=== PATIENT | female | born 1990 | race Caucasian/White ===

== ENCOUNTER 2020-11-22 09:51 | Outpatient (REF) | payer BC, SELFPAY ==
[2020-11-22 11:44] LABS: Hematocrit 36.1 % (37-47); Hemoglobin 12.2 g/dl (12.0-16.0); Mean Corpuscular HGB Conc 33.8 g/dl (31.0-35.0); Mean Corpuscular Hemoglobin 30.3 pg (27.0-33.0); Mean Corpuscular Volume 89.8 fL (80-98); Platelet Count 272 X10*3/uL (160-400); Red Blood Count 4.02 X10*6/uL (4.20-5.50); Red Cell Distribution Width 11.8 % (11.0-16.0); White Blood Count 4.4 X10*3/uL (4.8-10.8)
[2020-11-22 12:40] LABS: Alanine Aminotransferase 12 U/L (0-31); Albumin Level 4.8 g/dL (3.5-5.0); Alkaline Phosphatase 41 U/L (39-117); Anion Gap 13 (12-20); Aspartate Amino Transferase 15 U/L (5-31); Blood Urea Nitrogen 12 mg/dL (9-16); Calcium 9.2 mg/dL (8.4-10.2); Carbon Dioxide 24 mmol/L (22-29); Chloride 106 mmol/L (96-108); Cholesterol 183 mg/dL; Estimated Glomerular Filt Rate > 60; Glucose Fasting 101 mg/dL (60-99); HDL Cholesterol 90 mg/dL; LDL Cholesterol Calculated 80 mg/dl; Potassium 3.8 mmol/L (3.3-5.1); Sodium 139 mmol/L (135-145); Total Protein 7.4 g/dL (6.5-8.0); Triglycerides 69 mg/dL
== END 2020-11-22 09:52 | disposition home or self-care (01) ==
LOC: HO.HMGCLDS 09:51
PROVIDERS: PCP Internal Medicine; Visit Provider Internal Medicine
DX: Z00.00 Encounter for general adult medical examination without abnormal findings (principal)
CPT/HCPCS: 36415; 80053; 80061; 85027

== ENCOUNTER 2025-03-24 11:28 | Outpatient (AMB) | payer OTHER, SELFPAY ==
--- NOTE | 2025-03-24 11:32 | A.OFFPC_ITS ---
Vital Signs 03/24/25 11:37 Height 5 ft 3 in Weight 122 lb BMI 21.6 BP 124/76 Blood Pressure Location Rt brachial Position Sitting Respiration 14 Pulse 117 H Pulse Source Pulse Oximeter Temp 98.6 F Temp Source Oral Pulse Oximetry (%) 97 Oxygen Delivery Method Room Air Intake Visit Reasons: CPE? 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 HPI Details Pt is a 34 y/o female who presents today to [facility] care. She is transferring internally. She has a list of concerns. Derm: she has a hx of tinea versicolor. She has not tried anything for this. Reports this flat, hyperpigmented rash on her neck, upper chest and arms. Neuro: she states for the last 14 months she has been feeling dizziness/spinning sensation. She states anytime she moves her head quickly she will get dizz y/spinning. She states that about a week ago she developed temporary vision loss. She states she initially it started with a bright/blinding light and then noted squiggles in her vision and then she felt like she lost her peripheral vision. She states she called her mother who gets ocular migraines and told her try ibuprofen. She took ibuprofen and in about 45 minutes everything resolved. She did not see eye services or ED following that. Her last eye exam was 2021. She does get headaches but no change in her headaches. No numbness, tingling or weakness. She does get crackling in her ears. MSK: she notices her right knee has been popping and painful for the last 3-5 months. CV: BP today in office is 124/76. Her pulse is elevated at 117. States that she gets medical anxiety. As the visit went on her heart rate did normalize. She does not normally have palpitations, racing heartbeat etc.. No chest pain or shortness on breath. 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 1. Little interest or pleasure in doing things: not at all 2. Feeling down, depressed, or hopeless: not at all 3. Trouble falling or staying asleep, or sleeping too much: not at all 4. Feeling tired or having little energy: several days 5. Poor appetite or overeating: not at all 6. Feeling bad about yourself - or that you are a failure or have let yourself or your family down: not at all 7. Trouble concentrating on things, such as reading the newspaper or watching television: not at all 8. Moving or speaking so slowly that other people could have noticed. Or the opposite - being so fidgety or restless that you have been moving around a lot more than usual: not at all 9. Thoughts that you would be better off or of hurting yourself in some way: not at all Total score: 1 Depression Screening Interpretation: Negative Depression Screening Done: Yes 06397 - PHQ-9 Billing: Yes Source: Developed by Drs. Kaiser Luna, Maria Antonia Eduardo, Vinicius Ortiz and colleagues, with an educational roberto carlos from [employer]. Thrive Questionnaire Date Thrive assessed: 03/24/25 I am a: Patient What is your living situation today?: I have a steady place to live Within the past 12 months, did the food you bought not last and you didn't have the money to get more?: Never true Within the past 12 months, did you worry whether your food would run out before you got money to buy more?: Never true Do you have trouble paying for medicines?: No Do you have trouble getting transportation to medical appointments?: No Do you have trouble paying your heating and electricity bill?: No Do you have trouble taking care of your child, family member or friend?: No Do you have trouble with day-to-day activities such as bathing, preparing meals, shopping, managing finances, etc.?: No Are you currently unemployed and looking for a job?: No Are you interested in more education?: No Please select the resources that you would like help with: None Currently or been in a relationship where the following occur: No concerns reported THRIVE Score: 0 AUDIT C Alcohol Use Questionnaire (AUDIT-C) 1. How often do you have a drink containing alcohol?: Monthly or less 2. How many drinks containing alcohol do you have on a typical day when you are drinking?: 1 or 2 3. How often do you have six or more drinks on one occasion?: Never Total Score: 1 Score Reviewed/Action Taken: Yes MACKENZIE-7 AMB Questionnaire MACKENZIE-7 Date MACKENZIE - 7 assessed: 03/24/25 Feeling nervous, anxious, or on edge: 3 = Nearly every day Not being able to stop or control worryin = More than half the days Worrying too much about different things: 2 = More than half the days Trouble relaxin = More than half the days Being so restless that it is hard to sit still: 0 = Not at all Becoming easily annoyed or irritable: 2 = More than half the days Feeling afraid as if something awful might happen: 0 = Not at all Total MACKENZIE-7 score (0-4 normal; 5-9 mild; 10-14 moderate; 15-21 severe): 11 Source: Developed by Drs. Kaiser Luna, Maria Antonia Eduardo, Vinicius Ortiz and colleagues, with an educational roberto carlos from [employer]. MACKENZIE-7 Assessment Billing MACKENZIE-7 Assessment Tool: MACKENZIE-7 Assessment 63602 Physical exam (Primary Care) Vital Signs: Last Vital Signs Temp 98.6 F 03/24/25 11:37 Pulse 117 H 03/24/25 11:37 Resp 14 03/24/25 11:37 BP 124/76 03/24/25 11:37 Pulse Ox 97 03/24/25 11:37 Oxygen Delivery Method Room Air 03/24/25 11:37 BMI result Body Mass Index 21.6 Tobacco/Smoking Status: Tobacco use Status Tobacco use date assessed 03/24/25 03/24/25 11:46 Patient Tobacco Use Status Former Tobacco user (quit 5 03/24/25 11:46 years ago) e-Cigarette/Vaping Use Never Used 03/24/25 11:45 PHQ-9: PHQ-9 Score PHQ-9: Total score 1 03/24/25 11:59 Depression Screening Interpretation: Negative Thrive Assessment: Date of Thrive Assessment Date Thrive assessed 03/24/25 03/24/25 11:46 Currently or been in a relationship where the following occur: No concerns repo rted Const Orientation/consciousness: patient oriented x3 HENMT Ears: hearing grossly normal bilaterally Neck Thyroid: Thyroid normal Lymphatic: no lymphadenopathy noted Resp Auscultation: clear to auscultation bilaterally Cardio Rate: regular rate Rhythm: regular rhythm Heart sounds: S1 normal heart sound present and S2 normal heart sound present GI Inspection: Yes normal to inspection Palpation (GI): Soft to palpation and Other GI palpation findings present (nontender, no cva tenderness) Auscultation: normoactive bowel sounds Rectal Exam - Female: deferred Skin Other: There is a flat, hyperpigmented rash noted on the upper chest wall, upper back, arms and neck. There is a small, erythematous, nonblanching, approximately half a mm by half a mm lesion noted on the tip of her nose. Neuro General: patient oriented x3, gait normal, no focal motor deficits and CN's II- XI intact bilaterally Cranial nerves: Yes Bilaterally intact EOM present Cognition (Neuro): normal cognition Motor exam (neuro): 5/5 motor strength present throughout Sensory Exam: double simultaneous stimulation for sensation normal Coordination: [id number] test normal and Romberg test negative Coding Level of Care Code New Pt Level 4 (73414) Add On Problem Visit Only Diagnoses Tinea versicolor B36.0 Skin lesion L98.9 Right knee pain M25.561 Dizziness R42 Generalized headaches R51.9 Vision changes H53.9 Additional Codes MACKENZIE-7 Assessment Billing - MACKENZIE-7 Assessment Tool: MACKENZIE-7 Assessment 80137 ([id number]) PHQ-9 - 48107 - PHQ-9 Billing: Yes ([id number]) Assessment & Plan Assessment & Plan (1) Tinea versicolor: Code(s): B36.0 - Pityriasis versicolor Category: Medical Plan: We will try ketoconazole (2) Skin lesion: Code(s): L98.9 - Disorder of the skin and subcutaneous tissue, unspecified Category: Medical Plan: Referral to dermatology (3) Right knee pain: Code(s): M25.561 - Pain in right knee Category: Medical Plan: X-ray ordered Referral to ortho (4) Dizziness: Code(s): R42 - Dizziness and giddiness Category: Medical Plan: Patient does appear grossly neurologically intact today. MRI ordered. Labs ordered. Advised to follow with Ophthalmology as well. (5) Generalized headaches: Code(s): R51.9 - Headache, unspecified Category: Medical Plan: As above (6) Vision changes: Code(s): H53.9 - Unspecified visual disturbance Category: Medical Plan: As above Short term follow up arranged Orders: Orders Comprehensive Met. Panel 03/24/25 H53.9 - Unspecified visual disturbance, M25.561 - Pain in right knee, R42 - Dizziness and giddiness, R51.9 - Headache, unspecified Vitamin B12 and Folate 03/24/25 H53.9 - Unspecified visual disturbance, M25.561 - Pain in right knee, R42 - Dizziness and giddiness, R51.9 - Headache, unspecified TSH reflex Free T4 03/24/25 H53.9 - Unspecified visual disturbance, M25.561 - Pain in right knee, R42 - Dizziness and giddiness, R51.9 - Headache, unspecified XR knee RT 2V 03/24/25 M25.561 - Pain in right knee, M25.562 - Pain in left knee MR head/brain wo con 03/24/25 H53.9 - Unspecified visual disturbance, R42 - Dizziness and giddiness, R51.9 - Headache, unspecified PT Evaluation and Treatment 12/31/25 R42 - Dizziness and giddiness Complete Blood Count Auto Diff 03/24/25 H53.9 - Unspecified visual disturbance, M25.561 - Pain in right knee, R42 - Dizziness and giddiness, R51.9 - Headache, unspecified Lipid Panel 03/24/25 H53.9 - Unspecified visual disturbance, M25.561 - Pain in right knee, R42 - Dizziness and giddiness, R51.9 - Headache, unspecified Lyme IgG/IgM w/reflex to WB 03/24/25 H53.9 - Unspecified visual disturbance, M25.561 - Pain in right knee, R42 - Dizziness and giddiness, R51.9 - Headache, unspecified Erythrocyte Sedimentation Rate 03/24/25 H53.9 - Unspecified visual disturbance, M25.561 - Pain in right knee, R42 - Dizziness and giddiness, R51.9 - Headache, unspecified Referrals Dermatology Referral B36.0 - Pityriasis versicolor, L98.9 - Disorder of the skin and subcutaneous tissue, unspecified Orthopedics Referral M25.561 - Pain in right knee Ophthalmology Referral H53.9 - Unspecified visual disturbance Medications: New ketoconazole 2% 1 appl topical BID 60 grams 2RF 14 days ketoconazole 2% lather for 3-5 minutes 1 appl topical 3XW 120 mL 0RF
[2025-03-24 11:37] VITALS: BP 124/76; PULSE 117; RESP 14; TEMP 37; O2SAT 97; BMI 21.6
== END 2025-03-24 12:26 | disposition home or self-care (01) ==
LOC: HO.HMCFM 11:29
PROVIDERS: PCP Physician Assistant; Visit Provider Physician Assistant
DX: B36.0 Pityriasis versicolor (principal); L98.9 Disorder of the skin and subcutaneous tissue, unspecified; M25.561 Pain in right knee; R42 Dizziness and giddiness; R51.9 Headache, unspecified; H53.9 Unspecified visual disturbance

== ENCOUNTER → 2025-03-24 11:28 | Outpatient (BNVA) | payer OTHER, SELFPAY | PROVIDERS: PCP Physician Assistant; Visit Provider Physician Assistant | DX: Z76.89 Persons encountering health services in other specified circumstances (principal); B36.0 Pityriasis versicolor; L98.9 Disorder of the skin and subcutaneous tissue, unspecified; M25.561 Pain in right knee; M25.562 Pain in left knee; R42 Dizziness and giddiness; R51.9 Headache, unspecified; Z13.31 Encounter for screening for depression; Z13.39 Encounter for screening examination for other mental health and behavioral disorders | CPT/HCPCS: 96127 ==